=== PATIENT | male | born 2000 | race Caucasian/White ===

== ENCOUNTER → 2019-01-28 13:16 | Outpatient (CLI) | payer SELFPAY ==
[2019-01-30 10:40] LABS: Liquefaction Semen YES (YES); Sperm Count 245 x10^6/mL (20-150); Volume Semen 4.5 (1.0-5.0)
[2019-01-30 10:41] LABS: Sperm Motility 0% % Motile
[2019-01-30 10:45] LABS: Sperm Morphology 38 %ABNORM (0-30)
== END ==
PROVIDERS: Visit Provider Nurse Practitioner Obstetrics & Gynecology
DX: Z31.89 Encounter for other procreative management (principal)
CPT/HCPCS: 89320

== ENCOUNTER 2019-04-13 20:03 | Emergency (ER) | payer OTHER, MEDICAID, SELFPAY ==
[2019-04-13 20:05] VITALS: BP 187/110; PULSE 76; RESP 18; TEMP 36.7; O2SAT 99
--- NOTE | 2019-04-13 20:24 | DI.RAD.S_ITS ---
PROCEDURE: XR CHEST 1V INDICATIONS: Chest pain TECHNIQUE: One view of the chest was acquired. COMPARISON: None. FINDINGS: Surgical changes and devices: Bilateral possible ventricular shunt catheters are seen. Lungs and pleura: Lungs are clear. No pleural effusions or pneumothorax. Mediastinum: Mediastinal contours appear normal. Heart size is normal. Bones and chest wall: No suspicious bony lesions. Overlying soft tissues appear unremarkable. IMPRESSION: No acute cardiopulmonary pathology. Dictated by: Raymond Marin M.D. on 04/13/2019 at 20:53 Approved by: Raymond Marin M.D. on 04/13/2019 at 20:54
--- NOTE | 2019-04-13 20:41 | ED_ITS ---
HPI - General Adult General Chief complaint: Dizziness Stated complaint: CHEST PAIN DIZZY Time Seen by Provider: 04/13/19 20:24 Source: patient Mode of arrival: Ambulatory Limitations: no limitations History of Present Illness HPI narrative: 18-year-old male comes emergency department today for several symptoms to include chest pain, shortness of breath, lightheadedness and ?feeling out of it ?and also anxiety. He states that he has had these symptoms for several days now. Has not seen his primary doctor regarding them. States that he should be on anxiety medicine but has not been. Has a physical therapy appointment for some chronic low back pain that he is having. She states he has a appointment with a psychiatrist in the near future. Related Data Previous Rx's Medication Instructions Recorded naproxen [Naprosyn] 500 mg PO BID PRN #30 tab 04/13/19 Allergies Allergy/AdvReac Type Severity Reaction Status Date / Time No Known Drug Allergies Allergy Verified 04/13/19 20:10 Review of Systems Constitutional Constitutional: Denies fever(s) Cardiovascular Cardiovascular: Reports chest pain and Reports dyspnea Respiratory Respiratory: Reports dyspnea Gastrointestinal Gastrointestinal: Denies abdominal pain, Denies nausea and Denies vomiting Musculoskeletal Musculoskeletal: Reports back pain Integumentary/Breasts Skin/Breast: Reports rash Psychiatric Psychiatric: Reports anxiety Hematologic/Lymphatic Hematologic/Lymphatic: Denies easy bleeding and Denies easy bruising [facility] Medical History ADHD (Acute) Anxiety (Acute) Social History Smoking Status: Current some day smoker Social History Smoking Status: Current some day smoker Exam Initial Vital Signs Initial Vital Signs: Vital Signs Temperature 98.1 F 04/13/19 20:05 Pulse Rate 76 04/13/19 20:05 Respiratory Rate 18 04/13/19 20:05 Blood Pressure 187/110 H 04/13/19 20:05 Pulse Oximetry 99 04/13/19 20:05 Const General: cooperative, comfortable and well developed Orientation: alert and awake HENMT Head: normal to inspection and normocephalic Resp Effort & Inspection: normal respiratory effort Auscultation: clear to auscultation bilaterally Cardio Rate: regular rate Rhythm: regular rhythm Skin Lesions: no lesions Rashes: no rashes Neuro General: alert, awake and oriented x3 Cognition: normal cognition Speech: speech normal Extrem General: No edema Scores HEART Score Heart Score history: Slightly Suspicious Heart Score EKG: Normal Heart Score Age: < 45 years old Heart Score risk factors: No known risk factors Heart Score troponin: < or = to normal limit Heart Score Total: 0 Course Orders Ordered: ED Orders 04/13/19 20:14 EKG-12 Lead Stat 04/13/19 20:24 XR chest 1V Stat Vital Signs Vital signs: Vital Signs - 8 hr 04/13/19 20:05 04/13/19 21:16 Temperature 98.1 F Pulse Rate 76 69 Respiratory Rate 18 16 Blood Pressure 187/110 H Blood Pressure [Left Arm] 137/79 Pulse Oximetry 99 99 Medical Decision Making Imaging Data Chest x-ray: Radiologist's impression: [address] [address] XRay Report Signed Patient: VARGHESE MEDRANO#: [id number] : 2000Acct:[id number] Age/Sex: 18 / MDate of Service: 04/13/19 Loc: ED Accession Number: [id number] Procedure: XR chest 1V Ordering Provider: Howard Price D.O. PROCEDURE: XR CHEST 1V INDICATIONS: Chest pain TECHNIQUE: One view of the chest was acquired. COMPARISON: None. FINDINGS: Surgical changes and devices: Bilateral possible ventricular shunt catheters are seen. Lungs and pleura: Lungs are clear. No pleural effusions or pneumothorax. Mediastinum: Mediastinal contours appear normal. Heart size is normal. Bones and chest wall: No suspicious bony lesions. Overlying soft tissues appear unremarkable. IMPRESSION: No acute cardiopulmonary pathology. Dictated by: Raymond Marin M.D. on 04/13/2019 at 20:53 Approved by: Raymond Marin M.D. on 04/13/2019 at 20:54 ECG Data Attestation: I personally reviewed and interpreted this ECG as follows: Prior ECG tracings: not available for review Interpretation: Sinus rhythm Ventricular rate is 73 Normal axis Normal QRS Normal QTC No ST T wave changes MDM Narrative Medical decision making narrative: Patient is low risk for ACS. Chest x-ray and EKG are unremarkable. I do suspect that his symptoms related to anxiety. patient agrees. He is going to follow up with his primary provider and also keep all of his scheduled upcoming medical appointments. He will return to the emergency department any point for new or worsening symptoms Discharge Plan Departure Patient Disposition: Home Clinical Impression: Anxiety Chest pain Qualifiers: Chest pain type: unspecified Qualified Code(s): R07.9 - Chest pain, unspecified Back pain Qualifiers: Back pain location: low back pain Chronicity: chronic Back pain laterality: unspecified Sciatica presence: unspecified whether sciatica present Qualified Code(s): M54.5 - Low back pain Discharge Date/Time: 04/13/19 21:21 Instructions: DI for Anxiety -- Adult Activity Restrictions/Additional Instructions: I do recommend that you follow up with your referral for physical therapy. Also recommend that you continue with the plan to follow up with your psychiatrist. Contact your primary provider for follow-up as well. Return to the emergency department for any new or worsening symptoms Prescriptions: New naproxen [Naprosyn] 500 mg tablet 500 mg PO BID PRN (Reason: pain) Qty: 30 RF: 0
[2019-04-13 21:16] VITALS: BP 137/79; PULSE 69; RESP 16; O2SAT 99
== END 2019-04-13 21:21 | disposition home or self-care (01) ==
PROVIDERS: Emergency Provider Emergency Medicine
DX: F41.9 Anxiety disorder, unspecified (principal); R07.9 Chest pain, unspecified; M54.5 Low back pain
CPT/HCPCS: 71045; 93005; 99282; 99284

== ENCOUNTER 2019-05-10 17:53 | Emergency (ER) | payer OTHER, MEDICAID, SELFPAY ==
[2019-05-10 18:05] VITALS: BP 138/78; PULSE 74; RESP 18; TEMP 37.3; O2SAT 98
--- NOTE | 2019-05-10 19:37 | ED_ITS ---
HPI - Anxiety <LEBRON Rosales-BC - Last Filed: 05/10/19 20:08> General Chief Complaint: Anxiety Stated Complaint: foggy thinking,ears clogged,rapid heart rate Time Seen by Provider: 05/10/19 19:05 Source: patient and family Mode of arrival: Ambulatory Limitations: no limitations History of Present Illness HPI narrative: The patient is a 18-year-old male current smoker presents with his for chief complaint of foggy thinking and rapid heart rate earlier when he was exposed to ?secondhand marijuana smoke.He states that he felt as though his ears were clogged at the time. He did not take anything to feel better. The patient states that he has a history of anxiety, but he feels as though it has been misdiagnosed. He is seeing a therapist, has been diagnosed with ADHD and is waiting for medication management. He denies any thoughts of hurting himself or anybody else. He states that he felt better while waiting in the emergency department waiting room in currently denies all complaints other than clogged ears. He states that he has a history of having too much wax in his ears. Denies any fevers nausea vomiting diarrhea or current chest pain or shortness of breath. He denies any thoughts of hurting himself or anybody else. Related Data Previous Rx's Medication Instructions Recorded naproxen [Naprosyn] 500 mg PO BID PRN #30 tab 04/13/19 hydroxyzine pamoate 25 mg PO TID PRN #14 cap 05/10/19 Allergies Allergy/AdvReac Type Severity Reaction Status Date / Time No Known Drug Allergies Allergy Verified 04/13/19 20:10 Review of Systems <WILTON Rosales - Last Filed: 05/10/19 20:08> Review of Systems Narrative: GENERAL: Denies chills, fatigue, malaise, fever, sweats. HEENT: See HPI RESPIRATORY: Denies dyspnea, cough, wheezing, hemoptysis, sputum. CARDIOVASCULAR: Denies chest pain, palpitations, orthopnea, edema, GASTROINTESTINAL: Denies nausea, vomiting, abdominal pain, diarrhea, constipation, melena. : Denies dysuria, frequency, incontinence, hematuria, urinary retention. MUSCULOSKELETAL: denies weakness, joint pain, or bony pain SKIN: See HPI NEUROLOGIC: See HPI PSYCHIATRIC: No concerning psychosocial issues. 12 point review of systems is negative except for those stated above Patient History <TRIXIE Rosales - Last Filed: 05/10/19 20:08> Medical History ADHD (Acute) Anxiety (Acute) Social History Smoking Status: Current some day smoker tobacco type: cigarettes and vaping alcohol intake frequency: holidays/special occasions only Substance Use Type: does not use Exam <TRIXIE Rosales - Last Filed: 05/10/19 20:08> Narrative Exam Narrative: GENERAL: Obese male in no acute distress HEAD: Atraumatic. Normocephalic. No temporal or scalp tenderness. EYES: Pupils equal round and reactive. Extraocular motions intact. No scleral icterus. No injection or drainage. ENT: Nose without bleeding, purulent drainage or septal hematoma. Throat without erythema, tonsillar hypertrophy or exudate. Uvula midline. Airway patent. Cerumen accumulation noted in the left ear. Otherwise bilateral TMs pearly deng. Bilateral ear canals with normal limits with no signs of infection. NECK: Trachea midline. No JVD or lymphadenopathy. Supple, nontender, no meningeal signs. CARDIOVASCULAR: Regular rate and rhythm RESPIRATORY: Clear to auscultation. Breath sounds equal bilaterally. No wheezes, rales, or rhonchi. No cough. No increased respiratory effort. No accessory muscle use. GASTROINTESTINAL: Abdomen soft, non-tender, nondistended. No hepato- splenomegaly, or palpable masses. No guarding. Active bowel sounds all 4 quadrants. EXTREMITIES: No clubbing, cyanosis, or edema. No joint tenderness, effusion, or edema noted. BACK: Nontender without deformity or crepitance. No flank tenderness. NEURO: AOx3. SKIN: No rash or erythema. Initial Vital Signs Initial Vital Signs: Vital Signs Temperature 99.2 F 05/10/19 18:05 Pulse Rate 74 05/10/19 18:05 Respiratory Rate 18 05/10/19 18:05 Blood Pressure 138/78 05/10/19 18:05 Pulse Oximetry 98 05/10/19 18:05 <Howard Price DO - Last Filed: 05/10/19 23:00> Initial Vital Signs Initial Vital Signs: Vital Signs Temperature 99.2 F 05/10/19 18:05 Pulse Rate 74 05/10/19 18:05 Respiratory Rate 18 05/10/19 18:05 Blood Pressure 138/78 05/10/19 18:05 Pulse Oximetry 98 05/10/19 18:05 Course <LEBRON Rosales-BC - Last Filed: 05/10/19 20:08> Vital Signs Vital signs: Vital Signs - 8 hr 05/10/19 18:05 Temperature 99.2 F Pulse Rate 74 Respiratory Rate 18 Blood Pressure 138/78 Pulse Oximetry 98 <Howard Price DO - Last Filed: 05/10/19 23:00> Vital Signs Vital signs: Vital Signs - 8 hr 05/10/19 18:05 Temperature 99.2 F Pulse Rate 74 Respiratory Rate 18 Blood Pressure 138/78 Pulse Oximetry 98 MDM - Anxiety <LEBRON Rosales-BC - Last Filed: 05/10/19 20:08> MDM Narrative Medical decision making narrative: The patient is a 18 year old male with history of anxiety who presents after an episode of foggy thinking and rapid heart rate with exposure to marijuana. He denies his current symptoms, is not tachycardic, is GCS 15 on exam. He discontinue the complaint of her pressure, was noted to have some cerumen accumulation in his left ear canal, so I discussed the use of Debrox drops. Given the patient's anxiety, I did after a dose of history of but he stated that he would not want 1 here and would like to go home. I did give him a prescription to try as an outpatient basis. Patient denies any thoughts of hurting himself or anybody else states that he will come back to the emergency department if necessary. He is discharged home with his . They state understanding of return precautions, the importance of follow- up care and have no questions or concerns upon discharge. Discharge Plan Departure Patient Disposition: Home Clinical Impression: Acute anxiety Discharge Date/Time: 05/10/19 20:01 Instructions: DI for Cerumen Impaction, Anxiety and Panic Attacks (Alternative Therapy), DI for Anxiety -- Adult Activity Restrictions/Additional Instructions: I have given you a prescription of hydroxyzine, which she can take only as needed for anxiety. I suggest refraining from secondhand marijuana exposure. Please follow up with primary care provider in the next few days. You can try debrox wax softening drops for your ear wax. Please come back to emergency department for any acute concerns such as thoughts of hurting herself or anybody else, concern of heart attack etc Prescriptions: New hydroxyzine pamoate 25 mg capsule 25 mg PO TID PRN (Reason: anxiety) Qty: 14 RF: 0 No Action naproxen [Naprosyn] 500 mg tablet 500 mg PO BID PRN (Reason: pain) Qty: 30 RF: 0 <Howard Price, DO - Last Filed: 05/10/19 23:00> Sign Out Provider Sign Out Attestation: Dr Price Co-Sign Statement: I was available for consultation during this patient's emergency department visit. This chart is signed by myself for administrative purposes only. I did not have direct contact with this patient during this visit. They were seen independently by the APC.
== END 2019-05-10 20:01 | disposition home or self-care (01) ==
PROVIDERS: Emergency Provider Nurse Practitioner Family
DX: F41.9 Anxiety disorder, unspecified (principal); H61.22 Impacted cerumen, left ear
CPT/HCPCS: 99282; 99283

== ENCOUNTER 2019-09-03 12:05 | Emergency (ER) | payer OTHER, MEDICAID, SELFPAY ==
[2019-09-03 12:31] VITALS: BP 143/67; PULSE 61; RESP 16; TEMP 36.4; O2SAT 99; BMI 43.1
--- NOTE | 2019-09-03 14:56 | ED.EAR ---
HPI - Ear Problem <LYRIC Peguero - Last Filed: 09/03/19 21:16> General Chief complaint: Ear Stated complaint: ear ache past month Time Seen by Provider: 09/03/19 13:11 History of Present Illness HPI Narrative: 19yo male presents to the emergency department complaining of bilateral decreased hearing in ears and occasional ear pressure and pain for the past 2.5 months. He reports an associated frontal headache that is intermittent 3/10 dull aching pain. Patient states that he was recently seen by his neurologist today as he is having testing done for seizures and a workup for his headaches, he explained his ear pain to them and they advised him to see his primary care provider. Patient states ?I didnt want to wait for 3 weeks so he came into the emergency department as we around her way home anyway.Patient states the left ear is worse than the right. It initially was intermittent but now the left ear is constant. He does have a history of allergies. He reports tenderness intermittent nasal congestion as well. Patient does not take any med allergy medication. He denies any fevers, chills, vision changes, nausea, vomiting, diarrhea, chest pain, shortness of breath, or any other concerns. Related Data Home Medications Medication Instructions Recorded Confirmed dextroamphetamine-amphetamine 1 tab PO BID 09/03/19 09/03/19 dextroamphetamine-amphetamine 20 mg PO DAILY 09/03/19 09/03/19 ergocalciferol (vitamin D2) 5,000 unit PO QWEEK 09/03/19 09/03/19 [Vitamin D2] Previous Rx's Medication Instructions Recorded naproxen [Naprosyn] 500 mg PO BID PRN #30 tab 04/13/19 hydroxyzine pamoate 25 mg PO TID PRN #14 cap 05/10/19 fluticasone propionate [Flonase 1 spray NASAL BID 14 Days #15.8 ml 09/03/19 Allergy Relief] loratadine 10 mg PO DAILY #30 tab 09/03/19 Allergies Allergy/AdvReac Type Severity Reaction Status Date / Time No Known Drug Allergies Allergy Verified 04/13/19 20:10 Review of Systems <LYRIC Pegureo - Last Filed: 09/03/19 21:16> Review of Systems Narrative: REVIEW OF SYSTEMS: GENERAL: Denies fever or chills. HENT: No head trauma. Complains of bilateral ear pressure, see HPI. EYES: Denies eye irritation or vision changes. NECK/LYMPHATIC: No lymphadenopathy. CARDIOVASCULAR: No chest pain. RESPIRATORY: No shortness of breath. INTEGUMENTARY: No rash. NEURO: No confusion. Patient History <LYRIC Peguero - Last Filed: 09/03/19 21:16> Medical History ADHD (Acute) Anxiety (Acute) Social History Smoking Status: Current some day smoker Smoking Status: Current some day smoker tobacco type: cigarettes and vaping alcohol intake frequency: holidays/special occasions only Substance Use Type: does not use Exam <LYRIC Peguero - Last Filed: 09/03/19 21:16> Initial Vital Signs Initial Vital Signs: Vital Signs Temperature 97.6 F 09/03/19 12:31 Pulse Rate 61 09/03/19 12:31 Respiratory Rate 16 09/03/19 12:31 Blood Pressure 143/67 H 09/03/19 12:31 Pulse Oximetry 99 09/03/19 12:31 PHYSICAL EXAMINATION: GENERAL: Alert, and cooperative. Answers questions promptly and appropriately. Vital signs noted. HENT: Normocephalic, atraumatic. Hearing intact. Oral mucosa is pink and moist. Face features symmetrical. Right TM intact with crisp light reflex, left TM with otitis effusion-no erythema or bulge. Oropharynx without erythema. EYES: Conjunctiva pink, sclera white, no periorbital swelling. No discharge. CARDIOVASCULAR: Regular rate. RESPIRATORY: Normal respiratory rate, trachea midline, airway patent. No stridor, nasal flaring or accessory muscle use. . MUSCULOSKELETAL: Normal gait and coordination. Equal tone and mass bilaterally. SKIN: Warm, dry, soft, appropriate color for ethnicity. NEURO: Alert and Oriented X 3. Good coordination. PSYCH: Appropriate affect and mood. <Sergey Orozco DO - Last Filed: 09/04/19 08:18> Initial Vital Signs Initial Vital Signs: Vital Signs Temperature 97.6 F 09/03/19 12:31 Pulse Rate 61 09/03/19 12:31 Respiratory Rate 16 09/03/19 12:31 Blood Pressure 143/67 H 09/03/19 12:31 Pulse Oximetry 99 09/03/19 12:31 Course <Maribel MaddenLYRIC montoya - Last Filed: 09/03/19 21:16> Vital Signs Vital signs: Vital Signs - 8 hr 09/03/19 12:31 Temperature 97.6 F Pulse Rate 61 Respiratory Rate 16 Blood Pressure 143/67 H Pulse Oximetry 99 <Sergey Orozco DO - Last Filed: 09/04/19 08:18> Vital Signs Vital signs: Vital Signs - 8 hr 09/03/19 12:31 Temperature 97.6 F Pulse Rate 61 Respiratory Rate 16 Blood Pressure 143/67 H Pulse Oximetry 99 Medical Decision Making <Maribel MaddenLYRIC montoya - Last Filed: 09/03/19 21:16> Medical Records Medical records reviewed: Yes I reviewed the patient's medical records. Lab Data Lab results reviewed: Yes I reviewed the patient's lab results. MDM Narrative Medical decision making narrative: History and examination most consistent with otitis effusion. This is most likely due to history of allergies and possibly chronic inflammation in eustachian tubes. Less likely neurologic in nature as patient was recently seen by neurologist and was no concern expressed that this relates to any of his neurological issues. There is also visualization of otitis effusion. Patient was encouraged to use Flonase 1 spray in each nostril morning and night for the next 2 weeks. He was also encouraged to take loratadine help with allergies. Patient was encouraged to follow up with primary care provider for further discussion of testing and treatment if needed. Increased plan of care verbalized understanding. Discharge Plan Departure Patient Disposition: Home Clinical Impression: Chronic otitis media with serous effusion Qualifiers: Laterality: bilateral Qualified Code(s): H65.23 - Chronic serous otitis media, bilateral Discharge Date/Time: 09/03/19 13:42 Activity Restrictions/Additional Instructions: Thank you for entrusting me with your care today. As discussed, there is fluid behind your ear drums, this is most likely the cause of your symptoms. I suggest using Flonase, 1 spray in each nostril morning and night for the next 2 nights. Please be aware that this medication can cause nose bleeds if this happens, decreased use of medication. I have also prescribed you Claritin as environmental allergies can increase the inflammation in your ears. Please follow up with your primary care provider in 1-2 weeks for further evaluation. Return emergency department for any new or worsening symptoms such as chest pain, syncope, high fevers, or any other concerns. Prescriptions: New fluticasone propionate [Flonase Allergy Relief] 50 mcg/actuation spray,suspension 1 spray NASAL BID 14 Days Qty: 15.8 RF: 0 loratadine 10 mg tablet 10 mg PO DAILY Qty: 30 RF: 0 No Action naproxen [Naprosyn] 500 mg tablet 500 mg PO BID PRN (Reason: pain) Qty: 30 RF: 0 hydroxyzine pamoate 25 mg capsule 25 mg PO TID PRN (Reason: anxiety) Qty: 14 RF: 0 dextroamphetamine-amphetamine 7.5 mg tablet 1 tab PO BID RF: 0 dextroamphetamine-amphetamine 20 mg tablet 20 mg PO DAILY RF: 0 ergocalciferol (vitamin D2) [Vitamin D2] 1,250 mcg (50,000 unit) capsule 5,000 unit PO QWEEK RF: 0
== END 2019-09-03 13:42 | disposition home or self-care (01) ==
PROVIDERS: Emergency Provider Nurse Practitioner
DX: H65.23 Chronic serous otitis media, bilateral (principal)
CPT/HCPCS: 99281

== ENCOUNTER 2019-09-15 19:13 | Emergency (ER) | payer OTHER, MEDICAID, SELFPAY ==
[2019-09-15 19:51] VITALS: BP 136/60; PULSE 86; RESP 16; TEMP 36.6; O2SAT 98; BMI 43.4
--- NOTE | 2019-09-15 21:40 | ED.URI ---
HPI - URI/Sore Throat General Chief Complaint: Upper Respiratory Symptoms Stated Complaint: sore throat, disorientated per self Time Seen by Provider: 09/15/19 21:36 Source: patient Mode of arrival: Family Vehicle Limitations: no limitations History of Present Illness HPI Narrative: This is a 19-year-old male who comes emergency department with complaint of sore throat for about 24 hours. Patient denies any fevers, he denies any chills. He has had not had any muffled voice but has some mild hoarseness. He states a little painful to swallow. He has no problems with secretions. Patient has not had any swelling of his neck or face. He has had some nasal congestion. He states maybe a very minimal cough and is nonproductive. No chest pain or shortness of breath. No nausea or vomiting. No other GI or urinary symptoms. No swelling in his extremities and no rash. Patient states he otherwise healthy besides anxiety and takes medication for this. He denies any allergies to medications. He has had no known sick contacts. Related Data Home Medications Medication Instructions Recorded Confirmed dextroamphetamine-amphetamine 1 tab PO BID 09/03/19 09/03/19 dextroamphetamine-amphetamine 20 mg PO DAILY 09/03/19 09/03/19 ergocalciferol (vitamin D2) 5,000 unit PO QWEEK 09/03/19 09/03/19 [Vitamin D2] Previous Rx's Medication Instructions Recorded naproxen [Naprosyn] 500 mg PO BID PRN #30 tab 04/13/19 hydroxyzine pamoate 25 mg PO TID PRN #14 cap 05/10/19 fluticasone propionate [Flonase 1 spray NASAL BID 14 Days #15.8 ml 09/03/19 Allergy Relief] loratadine 10 mg PO DAILY #30 tab 09/03/19 Allergies Allergy/AdvReac Type Severity Reaction Status Date / Time No Known Drug Allergies Allergy Verified 04/13/19 20:10 Patient History Medical History ADHD (Acute) Anxiety (Acute) Social History Smoking Status: Former smoker Smoking Status: Former smoker tobacco type: cigarettes and vaping alcohol intake frequency: holidays/special occasions only Substance Use Type: does not use Exam Narrative Exam Narrative: GEN: Obese, well-appearing male, alert and oriented x 3, patient appears to be in mild distress. HEENT: Atraumatic, pupils are equal round reactive to light, extraocular movements are intact, nares show bilateral mild rhinorrhea, TMs are clear with no fluid, there is no conjunctival pallor. Throat is clear without any exudates, bilateral erythema erythema with mild bilateral tonsillar enlargement, uvular deviation is midline. No cervical lymphadenopathy noted. HEART: Regular rate and rhythm without murmur, clicks, rubs. LUNGS:Lungs clear to auscultation, no wheezes, rales, crackles, chest moves symmetrically ABD:bowel sounds normal, soft, non-tender, no guarding, rebound, rigidity, no masses noted, no hepatosplenomegaly :No CVA tenderness MSCL: Non-tender, no muscle atrophy, muscles strength 5/5 upper and lower extremities, full range of motion, normal gait NEURO:CN 2-12 intact, sensation normal SKIN: No rash, erythema or other skin changes. Initial Vital Signs Initial Vital Signs: Vital Signs Temperature 97.8 F 09/15/19 19:51 Pulse Rate 86 09/15/19 19:51 Respiratory Rate 16 09/15/19 19:51 Blood Pressure 136/60 09/15/19 19:51 Pulse Oximetry 98 09/15/19 19:51 Course Orders Ordered: Discontinued Medications Dexamethasone (Decadron) 10 mg PO NOW ONE Stop: 09/15/19 21:53 Last Admin: 09/15/19 21:58 Dose: 10 mg Documented by: HGNILSON Vital Signs Vital signs: Vital Signs - 8 hr 09/15/19 19:51 09/15/19 22:25 Temperature 97.8 F 98.6 F Pulse Rate 86 86 Respiratory Rate 16 16 Blood Pressure 136/60 138/65 Pulse Oximetry 98 98 MDM - URI/Sore Throat Lab Data Attestation: I reviewed the patient's lab results. Labs: Point of Care Testing Rapid Strep A Negative MDM Narrative Medical decision making narrative: Rapid strep is negative, patient does not meet center criteria for further treatment. Single dose of dexamethasone was given for swelling and discomfort. Patient initially was reluctant take the medication we discussed the risks versus benefits and we discussed that may help with symptoms but is not required that it can be a agitating medication but patient elected to finally take it. Discharge Plan Departure Patient Disposition: Home Clinical Impression: Hx of viral pharyngitis Discharge Date/Time: 09/15/19 22:25 Instructions: DI for Viral Pharyngitis Activity Restrictions/Additional Instructions: Follow-up with your sent physician if your symptoms are not improving in the next 7-10 days. Continue with Tylenol and/or ibuprofen as needed for pain and fevers greater 100.4 F. Make sure you are drinking plenty of fluids. Continue home medications as prescribed. Return to the ER for persistently high fevers, muffled voice, inability to swallow secretions, swelling of face and neck, rash, passing out or other new or concerning symptoms. Prescriptions: No Action naproxen [Naprosyn] 500 mg tablet 500 mg PO BID PRN (Reason: pain) Qty: 30 RF: 0 hydroxyzine pamoate 25 mg capsule 25 mg PO TID PRN (Reason: anxiety) Qty: 14 RF: 0 dextroamphetamine-amphetamine 7.5 mg tablet 1 tab PO BID RF: 0 dextroamphetamine-amphetamine 20 mg tablet 20 mg PO DAILY RF: 0 ergocalciferol (vitamin D2) [Vitamin D2] 1,250 mcg (50,000 unit) capsule 5,000 unit PO QWEEK RF: 0 fluticasone propionate [Flonase Allergy Relief] 50 mcg/actuation spray,suspension 1 spray NASAL BID 14 Days Qty: 15.8 RF: 0 loratadine 10 mg tablet 10 mg PO DAILY Qty: 30 RF: 0
[2019-09-15] MEDS: DEXAMETHASONE 10 MG/ML VIAL PO (21:58)
[2019-09-15 22:25] VITALS: BP 138/65; PULSE 86; RESP 16; TEMP 37; O2SAT 98
== END 2019-09-15 22:25 | disposition home or self-care (01) ==
PROVIDERS: Emergency Provider Emergency Medicine
DX: J02.9 Acute pharyngitis, unspecified (principal)
CPT/HCPCS: 87880; 99283; J1100

== ENCOUNTER 2020-02-26 17:25 | Emergency (ER) | payer OTHER, MEDICAID, SELFPAY ==
[2020-02-26 18:08] VITALS: BP 164/89; PULSE 83; RESP 18; TEMP 36.4; O2SAT 98; BMI 46.5
--- NOTE | 2020-02-26 20:18 | ED.SKABFB ---
HPI - Skin/Abscess/Foreign Bdy General Chief complaint: Skin/Abscess/Foreign Body Stated complaint: rash groin area, not going away Time Seen by Provider: 02/26/20 18:10 Source: patient Mode of arrival: Ambulatory Limitations: no limitations History of Present Illness HPI narrative: 19M former smoker with history of ADD presents with significant other and the chief complaint of 1 month of gradually worsening rash in the folds of his groin. He denies fever, chills, nausea or vomiting. He states it started much milder and he tried a barrier cream which did little. He also tried an over the counter cream with oatmeal, again it didn't help. He states it has varied from intensely itchy to sometimes painful. He is otherwise well and free of complaint. MD complaint: rash Onset (ago): week(s) Tetanus up to date: yes Location: genitals Severity: moderate Quality: burning, aching and pruritic Pain Consistency: intermittent Relieving factors: none Exacerbating factors: none Associated symptoms: denies other symptoms Treatments prior to arrival: OTC topical medication Related Data Home Medications Medication Instructions Recorded Confirmed dextroamphetamine-amphetamine 1 tab PO BID 09/03/19 09/03/19 dextroamphetamine-amphetamine 20 mg PO DAILY 09/03/19 09/03/19 ergocalciferol (vitamin D2) 5,000 unit PO QWEEK 09/03/19 09/03/19 [Vitamin D2] Previous Rx's Medication Instructions Recorded naproxen [Naprosyn] 500 mg PO BID PRN #30 tab 04/13/19 hydroxyzine pamoate 25 mg PO TID PRN #14 cap 05/10/19 loratadine 10 mg PO DAILY #30 tab 09/03/19 nystatin 1 applictn TOP BID 10 Days #15 gram 02/26/20 Allergies Allergy/AdvReac Type Severity Reaction Status Date / Time No Known Drug Allergies Allergy Verified 04/13/19 20:10 Review of Systems Constitutional Constitutional: Denies chills, Denies fatigue, Denies fever(s), Denies frequent falls, Denies lethargy and Denies weakness Eyes Eyes: Denies change in vision, Denies eye discharge, Denies irritation and Denies loss of vision ENT Ears, Nose, Mouth, and Throat: Denies change in voice, Denies dizziness, Denies neck pain, Denies sore throat and Denies throat swelling Cardiovascular Cardiovascular: Denies chest pain, Denies irregular heart rhythm, Denies lightheadedness, Denies palpitations, Denies dyspnea, Denies dyspnea on exertion and Denies orthopnea Respiratory Respiratory: Denies cough, Denies dyspnea, Denies dyspnea on exertion and Denies wheezing Gastrointestinal Gastrointestinal: Denies abdominal pain, Denies change in bowel habits, Denies diarrhea, Denies nausea and Denies vomiting Musculoskeletal Musculoskeletal: Denies neck pain and Denies numbness Integumentary/Breasts Skin/Breast: Reports pruritus, Reports erythema, Reports rash, Reports skin pain, Reports skin swelling and Denies wounds Neurologic Neurologic: Denies behavioral changes, Denies confusion, Denies dizziness, Denies frequent falls, Denies loss of vision, Denies numbness and Denies weakness Psychiatric Psychiatric: Denies anxiety, Denies behavioral changes, Denies confusion, Denies depression, Denies homicidal ideation and Denies suicidal ideation Endocrine Endocrine: Denies fatigue, Denies flushing and Denies palpitations Hematologic/Lymphatic Hematologic/Lymphatic: Denies easy bruising Allergic/Immunologic Allergic/Immunologic: Denies urticaria, Denies throat swelling and Denies wheezing Patient History Medical History ADHD (Acute) Anxiety (Acute) Social History Smoking Status: Former smoker Smoking Status: Former smoker tobacco type: cigarettes and vaping alcohol intake frequency: holidays/special occasions only Substance Use Type: does not use Exam Narrative Exam Narrative: GEN: AOx3 and in mild distress EYES: Pupils are equal, round, and reactive to light and accommodation. Extraoccular muscles are intact bilaterally. There is no subconjunctival hemorrhage or exudate. CHEST: Lungs are clear to auscultation bilaterally and free of wheezes, rales, or rhonchi. Heart rate is regular rhythm, there are no murmurs, clicks, rubs, or gallops. There is no chest wall tenderness. ABD: Abdomen is soft and nontender. There is no guarding or rebound. Bowel sounds are normal in all 4 quadrants. There is no mass or organomegaly. EXT: Full painless ROM of all extremities with no loss of sensation or strength. SKIN: Beefy red rash in skin folds of groin and pannus with satellite lesions c/w jonathon. Otherwise warm, pink, and dry. Initial Vital Signs Initial Vital Signs: Vital Signs Temperature 97.6 F 02/26/20 18:08 Pulse Rate 83 02/26/20 18:08 Respiratory Rate 18 02/26/20 18:08 Blood Pressure 164/89 H 02/26/20 18:08 Pulse Oximetry 98 02/26/20 18:08 Course Orders Ordered: Discontinued Medications Nystatin (Nystatin) 1 applic TOP NOW ONE Stop: 02/26/20 20:29 Last Admin: 02/26/20 20:43 Dose: 1 applic Documented by: BOBBI Vital Signs Vital signs: Vital Signs - 8 hr 02/26/20 20:44 Pulse Rate 84 Respiratory Rate 12 Blood Pressure 146/85 H Pulse Oximetry 97 Discharge Plan Departure Patient Disposition: Home Clinical Impression: Jonathon infection Discharge Date/Time: 02/26/20 20:47 Instructions: Yeast Infection-Skin Activity Restrictions/Additional Instructions: *You have been diagnosed with [candidal infection of your groin] *What to do: *Take medications as directed: Prescription sent to [facility] at your request *Follow up with the [facility] resource line so you can get connected with a local primary care provider. Please let them know you were seen in the emergency department and we would like you seen in the next few days if possible *Return to ER if you should have any new, worsening or concerning symptoms Prescriptions: New nystatin 100,000 unit/gram cream 1 applictn TOP BID 10 Days Qty: 15 RF: 0 No Action naproxen [Naprosyn] 500 mg tablet 500 mg PO BID PRN (Reason: pain) Qty: 30 RF: 0 hydroxyzine pamoate 25 mg capsule 25 mg PO TID PRN (Reason: anxiety) Qty: 14 RF: 0 dextroamphetamine-amphetamine 7.5 mg tablet 1 tab PO BID RF: 0 dextroamphetamine-amphetamine 20 mg tablet 20 mg PO DAILY RF: 0 ergocalciferol (vitamin D2) [Vitamin D2] 1,250 mcg (50,000 unit) capsule 5,000 unit PO QWEEK RF: 0 loratadine 10 mg tablet 10 mg PO DAILY Qty: 30 RF: 0 Referrals: [facility] [Outside]
[2020-02-26] MEDS: NYSTATIN CREAM 30 GM 1 APPLIC TOP (20:43)
[2020-02-26 20:44] VITALS: BP 146/85; PULSE 84; RESP 12; O2SAT 97
== END 2020-02-26 20:47 | disposition home or self-care (01) ==
PROVIDERS: Emergency Provider Emergency Medicine
DX: B37.2 Candidiasis of skin and nail (principal)
CPT/HCPCS: 99282

== ENCOUNTER 2020-05-17 13:53 | Emergency (ER) | payer OTHER, MEDICAID, SELFPAY ==
[2020-05-17 14:01] VITALS: BP 146/96; PULSE 93; RESP 18; TEMP 36.5; O2SAT 97; BMI 47.5
--- NOTE | 2020-05-17 16:18 | ED.GENADULT ---
HPI - General Adult General Chief complaint: Dizziness Stated complaint: DIZZY BUZZING OF THE EAR Time Seen by Provider: 05/17/20 14:15 Source: patient Mode of arrival: Ambulatory Limitations: no limitations History of Present Illness HPI narrative: Patient is a 19-year-old male here for evaluation of symptoms which she describes has a fairly sudden onset of lightheadedness and tunnel vision and ringing in his ears. He denies any other associated symptoms to include chest pain or palpitations. He states he did not pass out. He was sitting down at the time. He was at a ?clients? house at the time when this happen. 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 EMS were called and after their evaluation he reported that EMS told him he was most likely having a panic attack. He arrives here emergency department by private vehicle upon their recommendation. He states that he is feeling better now than when he did earlier. He has had 1 issue with panic attack several years ago. Related Data Home Medications Medication Instructions Recorded Confirmed dextroamphetamine-amphetamine 1 tab PO BID 09/03/19 09/03/19 dextroamphetamine-amphetamine 20 mg PO DAILY 09/03/19 09/03/19 ergocalciferol (vitamin D2) 5,000 unit PO QWEEK 09/03/19 09/03/19 [Vitamin D2] Previous Rx's Medication Instructions Recorded naproxen [Naprosyn] 500 mg PO BID PRN #30 tab 04/13/19 hydroxyzine pamoate 25 mg PO TID PRN #14 cap 05/10/19 loratadine 10 mg PO DAILY #30 tab 09/03/19 Allergies Allergy/AdvReac Type Severity Reaction Status Date / Time No Known Drug Allergies Allergy Verified 04/13/19 20:10 Review of Systems Constitutional Constitutional: Denies fatigue and Denies headache(s) Eyes Comments: Tunnel vision at the time of his exam ENT Ears, Nose, Mouth, and Throat: Denies vertigo, Reports dizziness, Denies headache(s), Denies sinus pain and Denies sore throat Cardiovascular Cardiovascular: Denies chest pain, Denies syncope, Denies rapid heart rate and Denies dyspnea on exertion Respiratory Respiratory: Denies cough and Denies dyspnea on exertion Gastrointestinal Gastrointestinal: Denies abdominal pain, Denies nausea and Denies vomiting Genitourinary Genitourinary: Denies dysuria Genitourinary: Denies dysuria Musculoskeletal Musculoskeletal: Denies arthralgias, Denies myalgias and Reports tingling Integumentary/Breasts Skin/Breast: Denies lesions and Denies rash Neurologic Neurologic: Denies confusion, Denies vertigo, Reports dizziness, Denies syncope, Denies headache(s) and Reports tingling Psychiatric Psychiatric: Reports anxiety and Denies confusion Endocrine Endocrine: Denies fatigue Hematologic/Lymphatic Hematologic/Lymphatic: Denies easy bleeding and Denies easy bruising Allergic/Immunologic Allergic/Immunologic: Denies urticaria Patient History Medical History ADHD (Acute) Anxiety (Acute) Social History Smoking Status: Former smoker Smoking Status: Former smoker tobacco type: cigarettes and vaping alcohol intake frequency: holidays/special occasions only Substance Use Type: does not use Exam Initial Vital Signs Initial Vital Signs: Vital Signs Temperature 97.7 F 05/17/20 14:01 Pulse Rate 93 H 05/17/20 14:01 Respiratory Rate 18 05/17/20 14:01 Blood Pressure 146/96 H 05/17/20 14:01 Pulse Oximetry 97 05/17/20 14:01 Const General: cooperative and comfortable Limitations: mental status not altered HENMT Head: normal to inspection and normocephalic Resp Effort & Inspection: normal respiratory effort Auscultation: clear to auscultation bilaterally Cardio Rate: regular rate Rhythm: regular rhythm GI Inspection: non-distended Palpation: soft Skin Lesions: no lesions Rashes: no rashes Neuro General: patient alert, patient awake and patient oriented x3 Cognition: normal cognition Speech: speech normal Motor: muscle tone normal throughout Extrem General: normal to inspection and capillary refill normal Psych Appearance: grossly normal and well kempt Scores GCS Sher coma scale eye opening: Spontaneous Sher coma scale verbal response: Orientated Sher coma scale motor response: Obey commands Sher coma scale total score: 15 Course Orders Ordered: ED Orders 05/17/20 16:15 EKG-12 Lead Stat Vital Signs Vital signs: Vital Signs - 8 hr 05/17/20 14:01 05/17/20 16:45 Temperature 97.7 F Pulse Rate 93 H 71 Respiratory Rate 18 16 Blood Pressure 146/96 H 153/74 H Pulse Oximetry 97 99 Medical Decision Making ECG Data Attestation: I personally reviewed and interpreted this ECG as follows: Prior ECG tracings: not available for review Interpretation: Sinus rhythm Ventricular rate is [address] T wave changes MDM Narrative Medical decision making narrative: Patient is asymptomatic and has a normal exam here in the emergency department. I have a high suspicion this either anxiety or vasovagal issue. He states he did not completely pass out however his symptoms are very consistent with this. I feel we can hold on further workup from the emergency department. He is given return for this. He expressed understanding and agreement. Discharge Plan Departure Patient Disposition: Home Clinical Impression: Pre-syncope Discharge Date/Time: 05/17/20 16:50 Instructions: DI for Dizziness-Nonvertigo Activity Restrictions/Additional Instructions: Continue all of your medications as directed. Be sure to increase your fluid intake as being dehydrated could potentially cause some the symptoms that you are having today. Contact your primary provider for follow-up. Return to the emergency department for any new or worsening symptoms Prescriptions: No Action naproxen [Naprosyn] 500 mg tablet 500 mg PO BID PRN (Reason: pain) Qty: 30 RF: 0 hydroxyzine pamoate 25 mg capsule 25 mg PO TID PRN (Reason: anxiety) Qty: 14 RF: 0 dextroamphetamine-amphetamine 7.5 mg tablet 1 tab PO BID RF: 0 dextroamphetamine-amphetamine 20 mg tablet 20 mg PO DAILY RF: 0 ergocalciferol (vitamin D2) [Vitamin D2] 1,250 mcg (50,000 unit) capsule 5,000 unit PO QWEEK RF: 0 loratadine 10 mg tablet 10 mg PO DAILY Qty: 30 RF: 0
[2020-05-17 16:45] VITALS: BP 153/74; PULSE 71; RESP 16; O2SAT 99
== END 2020-05-17 16:50 | disposition home or self-care (01) ==
PROVIDERS: Emergency Provider Emergency Medicine
DX: R55 Syncope and collapse (principal); H53.489 Generalized contraction of visual field, unspecified eye; F41.9 Anxiety disorder, unspecified; R20.2 Paresthesia of skin; R07.9 Chest pain, unspecified
CPT/HCPCS: 93005; 99281; 99283

== ENCOUNTER → 2020-09-30 08:10 | Outpatient (CLI) | payer OTHER, MEDICAID, SELFPAY ==
[2020-09-30 09:34] LABS: Liquefaction Semen YES (YES); Sperm Count 122 x10^6/mL (20-150); Sperm Morphology 40 %ABNORM (0-30); Sperm Motility 70% % Motile
== END ==
PROVIDERS: Referring Provider Obstetrics & Gynecology; Visit Provider Obstetrics & Gynecology
DX: Z31.41 Encounter for fertility testing (principal)
CPT/HCPCS: 89320